=== PATIENT | male | born 1960 | race Caucasian/White ===

== ENCOUNTER → 2020-06-01 | Outpatient (CLI) | payer OTHER | LOC: LAB 12:38 | PROVIDERS: ATTEND Surgery | DX: Z01.812 Encounter for preprocedural laboratory examination (principal); Z20.828 Contact with and (suspected) exposure to other viral communicable diseases ==

== ENCOUNTER 2020-06-06 08:03 | Day surgery (SDC) | payer OTHER ==
[~2020-06-06] VITALS: Ht 177.8 cm; Wt 84.6 kg
--- NOTE | ~2020-06-06 | O ---
[facility] [place] [address] OPERATIVE REPORT Name: MONE ZABALA Room #: DEP [facility].#: [id number] Admission: 06/06/20 Attend Phys: Kwaku Parada MD Discharge: 06/06/20 Date of : 58 Report #: [id number] THIS REPORT FOR: cc: Masood Anderson James A. DO Chu, Peter Y. MD ~ DATE OF SERVICE: 06/06/2020 PREOPERATIVE DIAGNOSIS: Large right inguinal hernia. POSTOPERATIVE DIAGNOSIS: Large right inguinal hernia with a large indirect hernia sac. PROCEDURE PERFORMED: Laparoscopic properitoneal repair of a right inguinal hernia with large 3DMax lightweight mesh. SURGEON: Kwaku Parada MD ANESTHESIA: General anesthesia. ESTIMATED BLOOD LOSS: 5 mL. COMPLICATIONS: None. DESCRIPTION OF PROCEDURE: With the patient under general anesthesia, abdomen was prepped and draped in sterile fashion. Thornton catheter was placed before this. IV antibiotic was administered. Timeout was performed. A 0.25% Marcaine was used to anesthetize the skin. A 2 cm incision was made adjacent to the umbilicus on the right side transversely. The fascia over the rectus muscle was incised transversely. The muscle was spread. The space between the muscle and the posterior fascia was dissected free. A balloon trocar was placed in the space. CO2 was placed. Under visualization, 5 mm trocar was placed in the properitoneal space. This was placed about 2 inches below the umbilicus in the midline. Properitoneal dissection was then carried out. The space laterally was opened. This was lateral to the ___ vessel, lateral to the internal ring. After this was opened up, a 5 mm trocar was placed laterally. The hernia sac was found, dissected free. The hernia sac was pretty thick. The hernia sac was able to be completely reduced free from the cord structure. There was a small lipoma on the cord laterally. This was removed. A large right 3DMax lightweight mesh was then placed through the 11 mm trocar. This was opened up without difficulty. This covered the internal ring well and the mesh is shifted to cover the internal ring better. The mesh was tacked superolaterally with SorbaFix to the abdominal wall. Inferomedially, it was tacked to the Cruz's ligament above pubic bone, superomedially to the rectus muscle. The mesh seated well. The hernia sac was medially located and excluded from the ring by the [facility] [address] [place] [address] OPERATIVE REPORT Name: MONE ZABALA Room #: DEP [facility].#: [id number] Admission: 06/06/20 Attend Phys: Kwaku Parada MD Discharge: 06/06/20 Date of : 58 Report #: [id number] mesh. CO2 was evacuated. Trocars then removed. The anterior fascia defect at the umbilicus was closed with [id number] 0 Vicryl x 2. Skin was irrigated, closed with 5-0 PDS. Steri-Strip, Band-Aids applied. The patient tolerated the procedure well and was taken to recovery room. By: [id number] Kwaku Parada MD /nt
[~2020-06-06 08:03] MED LIST: IBUPROFEN200 M1 PO
[2020-06-06 08:45] LABS: HEMATOCRIT 43.3 % (42.0-52.0); HEMOGLOBIN 14.6 gm/dL (14.0-18.0)
[2020-06-06 09:05] VITALS: BP 168/98
[2020-06-06] MEDS ORDERED: HYDROCODON-ACE1 EAC7 PO (11:41)
[2020-06-06 12:14] VITALS: BP 168/98
== END 2020-06-06 12:48 | disposition home or self-care (01) ==
LOC: OR 08:03 → TBA 08:03 → OR 09:14
PROVIDERS: ATTEND Surgery
DX: K40.90 Unilateral inguinal hernia, without obstruction or gangrene, not specified as recurrent (principal); Z98.890 Other specified postprocedural states
CPT/HCPCS: 50010; 50101; 50411; 50455; 50507; 50555; 50848; 52265; 53065; 53307; 56525; 56526; 62110; 62900; 70005

== ENCOUNTER → 2020-06-20 | Outpatient (CLI) | payer OTHER ==
[~2020-06-20] MED LIST changes: +HYDROCODON-ACE1 EAC7 PO
== END ==
LOC: LAB 11:20
PROVIDERS: ATTEND Internal Medicine Gastroenterology
DX: Z01.812 Encounter for preprocedural laboratory examination (principal); Z20.822 Contact with and (suspected) exposure to COVID-19

== ENCOUNTER → 2020-06-25 | Outpatient (CLI) | payer OTHER ==
[~2020-06-25] VITALS: Ht 177.8 cm; Wt 82.1 kg
--- NOTE | 2020-06-29 18:06 | PATH ---
[facility] [address] [place] [address] PATHOLOGY RPT PROCEDURE Name: TANVIR ZABALA Room #: REG JUICE Fitzpatrick.#: [id number] Admission: 06/25/20 Date of : 58 Discharge: Report #: [id number] Path Case #: [id number] [facility] Accession Number: [id number] . 01 Material submitted: . PART A: gastrointestinal site - TRANSVERSE POLYP BIOPSY. Modifiers: transverse PART B: sigmoid colon - SIGMOID COLON POLYP X2 . 02 Diagnosis: A. Polyp, transverse polyp, endoscopic biopsy: - Tubular adenoma. - Negative for high grade dysplasia. . B. Polyp x 2, sigmoid colon polyp, endoscopic biopsy: - Tubular adenoma identified in all fragments sampled. - Negative for high grade dysplasia. (IUV/db; 06/29/2020) LBQ 06/29/2020 1401 Local . 02 Electronically signed: . Aislinn Douglas MD, Pathologist NPI- [id number] . 01 Gross description: . A. Received in formalin labeled "Tanvir Zabala BX transverse polyp" is a fragment of ley-brown soft tissue measuring 0.9 x 0.6 x 0.2 cm. The specimen is submitted entirely in A1. . B. Received in formalin labeled "Tanvir Zabala BX sigmoid colon polyp x2" are multiple fragments of ley-brown soft tissue measuring in aggregate 1.1 x 0.6 x 0.3 cm. The specimen is submitted entirely in B1. ([facility] [place]; 06/28/2020) [facility] 06/28/2020 1138 Local . 02 Pathologist provided ICD-10: D12.3, D12.5 . 02 CPT . 974792, 668163 Specimen Comment: A courtesy copy of this report has been sent to [phone] Specimen Comment: [phone] Specimen Comment: Report sent to / DR PATEL Performed at: [address], [place] [id number] [place] [address] PATHOLOGY RPT PROCEDURE Name: TANVIR ZABALA Room #: REG JUICE Isbell#: [id number] Admission: 06/25/20 Date of : 58 Discharge: Report #: [id number] Path Case #: [id number] MD Kam Vigil MD Phone: [phone] Performed at: [address] [id number] MD Aislinn Douglas MD Phone: [phone]
== END | disposition home or self-care (01) ==
LOC: GI
PROVIDERS: ATTEND Internal Medicine Gastroenterology
DX: Z12.11 Encounter for screening for malignant neoplasm of colon (principal); D12.3 Benign neoplasm of transverse colon; D12.5 Benign neoplasm of sigmoid colon; K57.30 Diverticulosis of large intestine without perforation or abscess without bleeding; K64.5 Perianal venous thrombosis; Z98.890 Other specified postprocedural states; Z79.899 Other long term (current) drug therapy
CPT/HCPCS: 62110; 62900